=== PATIENT | male | born 1980 | race Caucasian/White ===

== ENCOUNTER 2020-12-25 01:00 | Inpatient (IN) | payer OTHER ==
[~2020-12-25] VITALS: Ht 167.6 cm; Wt 89.1 kg
[2020-12-25] VITALS (7 sets, daily range): BP systolic 142–155; BP diastolic 79–98
[2020-12-25 06:37] LABS: BASO % 0.2 % (0.0-1.0); EOS % 0.4 % (1.0-4.0); HEMATOCRIT 35.1 % (42.0-52.0); LYMPH # 0.9 10*3/uL (1.3-4.4); LYMPH % 19.3 % (27.0-41.0); MEAN CELL VOLUME 81.8 fl (80.0-94.0); MEAN CORPUSCULAR HGB 28.4 pg (27.0-31.0); MEAN CORPUSCULAR HGB CONC 34.8 g/dl (33.0-37.0); MEAN PLATELET VOLUME 9.4 fl (9.6-12.3); MONO # 0.3 10*3/uL (0.1-1.0); MONO % 7.4 % (3.0-9.0); NEUT # 3.3 10*3/uL (2.3-7.9); NEUT % 72.5 % (47.0-73.0); PLATELET COUNT AUTOMATED 206 10*3/uL (130-400); RED BLOOD COUNT 4.29 10*6/uL (4.50-5.90); RED CELL DISTRI WIDTH 13.9 % (0-14.5); WHITE BLOOD COUNT 4.6 10*3/uL (4.8-10.8)
[2020-12-25 07:05] LABS: ALBUMIN 3.3 gm/dl (3.1-4.5); BUN 9 mg/dl (7-24); CHLORIDE 107 mmol/L (98-107); SODIUM 140 mmol/L (136-145)
[2020-12-25 07:22] LABS: ALKALINE PHOSPHATASE 47 U/L (45-117); CREATININE 0.96 mg/dL (0.70-1.30); FREE T4 0.76 ng/dl (0.76-1.46); SGOT/AST 166 IU/L (3-35); SGPT/ALT 113 U/L (12-78); THYROID STIM HORMONE (HS) 0.275 uIU/ml (0.358-4.75); TOTAL PROTEIN 6.8 gm/dL (6.4-8.2)
[2020-12-25 07:23] LABS: CPK 5420 U/L (39-308)
[2020-12-25 07:52] LABS: VITAMIN D, 25-HYDROXY 29.5 ng/mL (30-100)
[2020-12-26] VITALS: BP 160/94; BP 162/93
[2020-12-26 06:47] LABS: BASO % 0.4 % (0.0-1.0); EOS % 0.2 % (1.0-4.0); HEMATOCRIT 38.2 % (42.0-52.0); LYMPH % 17.8 % (27.0-41.0); MEAN CELL VOLUME 79.6 fl (80.0-94.0); MEAN CORPUSCULAR HGB 28.5 pg (27.0-31.0); MEAN CORPUSCULAR HGB CONC 35.9 g/dl (33.0-37.0); MEAN PLATELET VOLUME 9.2 fl (9.6-12.3); MONO # 0.3 10*3/uL (0.1-1.0); MONO % 4.9 % (3.0-9.0); NEUT # 4.2 10*3/uL (2.3-7.9); NEUT % 76.2 % (47.0-73.0); PLATELET COUNT AUTOMATED 246 10*3/uL (130-400); RED CELL DISTRI WIDTH 13.8 % (0-14.5); WHITE BLOOD COUNT 5.6 10*3/uL (4.8-10.8)
[2020-12-26 07:08] LABS: ALBUMIN 3.5 gm/dl (3.1-4.5); BUN 12 mg/dl (7-24); CHLORIDE 107 mmol/L (98-107); POTASSIUM 3.7 mmol/L (3.5-5.1); SODIUM 139 mmol/L (136-145)
[2020-12-26 07:13] LABS: ALKALINE PHOSPHATASE 51 U/L (45-117); CREATININE 1.01 mg/dL (0.70-1.30); SGOT/AST 116 IU/L (3-35); SGPT/ALT 112 U/L (12-78); TOTAL PROTEIN 7.1 gm/dL (6.4-8.2)
[2020-12-26 08:00] VITALS: BP 145/100
[2020-12-26] MEDS ORDERED: NORVASC5 MG PO (10:05)
== END 2020-12-26 11:34 | disposition home or self-care (01) | DRG 918 ==
LOC: 5E 01:00
PROVIDERS: Internal Medicine; ADMIT Internal Medicine; ATTEND Internal Medicine
DX: T40.601A Poisoning by unspecified narcotics, accidental (unintentional), initial encounter (principal); E44.0 Moderate protein-calorie malnutrition; M62.82 Rhabdomyolysis; R55 Syncope and collapse; R03.0 Elevated blood-pressure reading, without diagnosis of hypertension; R74.01 Elevation of levels of liver transaminase levels; E55.9 Vitamin D deficiency, unspecified; E66.9 Obesity, unspecified; Y92.89 Other specified places as the place of occurrence of the external cause; Z83.3 Family history of diabetes mellitus; Z82.49 Family history of ischemic heart disease and other diseases of the circulatory system; Z68.31 Body mass index [BMI] 31.0-31.9, adult